=== PATIENT | female | born 1965 | race African-American/Black ===

== ENCOUNTER 2020-12-23 05:20 | Emergency (ER) | payer OTHER ==
[~2020-12-23] VITALS: Ht 160 cm; Wt 79.4 kg
--- NOTE | 2020-12-23 05:20 | NUR ---
PT TAKEN TO BED 4
--- NOTE | 2020-12-23 05:38 | NUR ---
PATIENT REPORTS HITTING TOP OF HER HEAD ON METAL CONTAINER IN WORK AREA. STATES SHE BENT OVER TO PICK SOMETHING UP AND WHEN SHE CAME UP SHE HIT HER HEAD. DENIES LOC AND DENIES ANY OTHER OCMPLAINTS OTHER THAN PAIN. PATIENT CURRENTLY HAS ICE PACK ON HEAD, SITTING COMFORTABLY
--- NOTE | 2020-12-23 05:42 | NUR ---
Dr. Ventura examining patient.
[2020-12-23 05:43] VITALS: BP 118/71
[2020-12-23] MEDS ORDERED: IBUPROFEN 800 MG TAB PO ONE (05:50)
--- NOTE | 2020-12-23 06:00 | NUR ---
REFUSED IBUPROFEN AT THIS TIME.
--- NOTE | 2020-12-23 06:03 | NUR ---
PATIENT CLEARED FOR DISCHARGE AT THIS TIME, PENDING ADMINISTRATION OF TYLENOL. MAKEDA HAS NO FURTHER COMPLAINTS OR CONCERNS FOLLOWING DISHCARGE TEACHING. PATIENT ADVISED TO FOLLOW UP WITH PCP AND RETURN IF CONDITION WORSENS.
[2020-12-23] MEDS ORDERED: ACETAMINOPHEN EXTRA STRENGTH 500 MG TAB PO ONE (06:05)
[2020-12-23 06:09] VITALS: BP 118/71
== END 2020-12-23 06:03 | disposition home or self-care (01) ==
LOC: MED 05:20
DX: S09.90XA Unspecified injury of head, initial encounter (principal); W22.8XXA Striking against or struck by other objects, initial encounter; Y93.89 Activity, other specified; Y92.89 Other specified places as the place of occurrence of the external cause; Y99.0 Civilian activity done for income or pay
CPT/HCPCS: 99282

== ENCOUNTER 2023-01-05 14:37 | Outpatient (CLI) | payer OTHER | END 2023-01-05 19:56 | disposition home or self-care (01) | LOC: MUS 14:37 | PROVIDERS: ATTEND Family Medicine | DX: R74.01 Elevation of levels of liver transaminase levels (principal) | CPT/HCPCS: 76705; Q0092 ==